=== PATIENT | female | born 1960 | race Caucasian/White ===

== ENCOUNTER 2017-08-23 06:58 | Day surgery (SDC) | payer MEDICARE, OTHER ==
[~2017-08-23] VITALS: Ht 157.5 cm; Wt 55.8 kg
[~2017-08-23 06:58] MED LIST: ASPI81EC; FOLATE PO; GABA300 PO; HYDACE5 PO; LEVFLO500 PO; METTREX2.5 PO; NAPR500 PO; OXYC30 PO
[2017-09-15] MEDS ORDERED: RANI150 PO (13:51)
== END 2017-08-23 08:56 | disposition home or self-care (01) ==
LOC: ORSCMMR 06:58
PROVIDERS: Internal Medicine Gastroenterology
PROC: 0DB58ZX Excision of Esophagus, Via Natural or Artificial Opening Endoscopic, Diagnostic (ICD-10-PCS; principal; 2017-08-23 08:00)
PROC: 0DB98ZX Excision of Duodenum, Via Natural or Artificial Opening Endoscopic, Diagnostic (ICD-10-PCS; principal; 2017-08-23 08:00)
PROC: 0DB68ZX Excision of Stomach, Via Natural or Artificial Opening Endoscopic, Diagnostic (ICD-10-PCS; principal; 2017-08-23 08:00)
PROC: 0DB48ZX Excision of Esophagogastric Junction, Via Natural or Artificial Opening Endoscopic, Diagnostic (ICD-10-PCS; principal; 2017-08-23 08:00)
DX: R10.13 Epigastric pain (principal); R10.12 Left upper quadrant pain; K44.9 Diaphragmatic hernia without obstruction or gangrene; K29.80 Duodenitis without bleeding; Z83.71 Family history of colonic polyps; F17.210 Nicotine dependence, cigarettes, uncomplicated; Z79.899 Other long term (current) drug therapy
CPT/HCPCS: 88305; 88342; J7120

== ENCOUNTER 2017-09-18 07:58 | Day surgery (SDC) | payer MEDICARE, OTHER ==
[~2017-09-18] VITALS: Ht 157.5 cm; Wt 56.2 kg
[~2017-09-18 07:58] MED LIST changes: +RANI150 PO
[2017-09-18] MEDS ORDERED: TRAZ50 PO (08:23)
== END 2017-09-18 10:00 | disposition home or self-care (01) ==
LOC: ORSCMMR 07:58
PROVIDERS: Internal Medicine Gastroenterology
PROC: 0DBH8ZX Excision of Cecum, Via Natural or Artificial Opening Endoscopic, Diagnostic (ICD-10-PCS; principal; 2017-09-18 09:00)
PROC: 0DBK8ZX Excision of Ascending Colon, Via Natural or Artificial Opening Endoscopic, Diagnostic (ICD-10-PCS; principal; 2017-09-18 09:00)
PROC: 0DBM8ZX Excision of Descending Colon, Via Natural or Artificial Opening Endoscopic, Diagnostic (ICD-10-PCS; principal; 2017-09-18 09:00)
DX: Z12.11 Encounter for screening for malignant neoplasm of colon (principal); D12.2 Benign neoplasm of ascending colon; D12.0 Benign neoplasm of cecum; D12.4 Benign neoplasm of descending colon; K64.8 Other hemorrhoids; K57.30 Diverticulosis of large intestine without perforation or abscess without bleeding; M06.9 Rheumatoid arthritis, unspecified; Z83.71 Family history of colonic polyps; F17.210 Nicotine dependence, cigarettes, uncomplicated; Z79.899 Other long term (current) drug therapy
CPT/HCPCS: 88305; J7120

== ENCOUNTER 2017-10-05 06:14 | Day surgery (SDC) | payer MEDICARE, OTHER ==
[~2017-10-05] VITALS: Ht 157.5 cm; Wt 55.6 kg
[~2017-10-05 06:14] MED LIST changes: +TRAZ50 PO
== END 2017-10-05 10:13 | disposition home or self-care (01) ==
LOC: ORSCSDS 06:14
PROVIDERS: Orthopaedic Surgery
PROC: 0RBK4ZZ Excision of Left Shoulder Joint, Percutaneous Endoscopic Approach (ICD-10-PCS; principal; 2017-10-05 07:30)
DX: M75.112 Incomplete rotator cuff tear or rupture of left shoulder, not specified as traumatic (principal); M94.212 Chondromalacia, left shoulder; Z79.899 Other long term (current) drug therapy; F17.210 Nicotine dependence, cigarettes, uncomplicated
CPT/HCPCS: J0171; J0690; J1100; J1885; J2250; J2405; J3010; J7120

== ENCOUNTER → 2017-12-15 | Outpatient (CLI) | payer MEDICARE, OTHER | END | disposition home or self-care (01) | LOC: LAB SHORT 14:27 → LAB 14:27 | DX: L92.8 Other granulomatous disorders of the skin and subcutaneous tissue (principal) | CPT/HCPCS: 88304 ==

== ENCOUNTER 2017-12-29 07:59 | Emergency (ER) | payer MEDICARE, OTHER ==
[~2017-12-29] VITALS: Ht 157.5 cm; Wt 55.3 kg
[2017-12-29] MEDS ORDERED: FOLI1 PO (08:40)
[2017-12-29] MEDS ORDERED: GABA100 PO (08:41)
== END 2017-12-29 10:00 | disposition home or self-care (01) ==
LOC: ER 07:59
DX: G89.18 Other acute postprocedural pain (principal); Z48.817 Encounter for surgical aftercare following surgery on the skin and subcutaneous tissue; Z88.5 Allergy status to narcotic agent; Z79.899 Other long term (current) drug therapy; Z79.891 Long term (current) use of opiate analgesic; F17.200 Nicotine dependence, unspecified, uncomplicated
CPT/HCPCS: 99282

== ENCOUNTER 2018-08-20 08:14 | Emergency (ER) | payer MEDICARE, OTHER ==
[~2018-08-20] VITALS: Ht 157.5 cm; Wt 49.9 kg
[~2018-08-20 08:14] MED LIST changes: +FOLI1 PO; +GABA100 PO
[2018-08-20 09:23] LABS: BASOPHILS ABSOLUTE AUTO 0.11 K/mm3 (0.00-0.23); BASOPHILS PERCENT AUTO 1 % (0-2); EOSINOPHILS PERCENT AUTO 3 % (0-6); Hemoglobin 13.6 g/dL (11.5-16.0); IMMATURE GRAN ABSOLUTE AUTO 0.02 K/mm3 (0.00-0.10); IMMATURE GRAN PERCENT AUTO 0 % (0-1); LYMPHOCYTES ABSOLUTE AUTO 2.61 K/mm3 (0.84-5.20); LYMPHOCYTES PERCENT AUTO 29 % (21-46); MONOCYTES ABSOLUTE AUTO 0.87 K/mm3 (0.16-1.47); MONOCYTES PERCENT AUTO 10 % (4-13); Mean Corpuscular HGB 30.5 pg (26.0-34.0); Mean Corpuscular HGB Conc 31.6 g/dL (31.5-36.5); Mean Corpuscular Volume 96 fL (80-100); Mean Platelet Volume 10.2 fL (9.1-12.4); NEUTROPHILS ABSOLUTE AUTO 5.12 K/mm3 (1.96-9.15); NEUTROPHILS PERCENT AUTO 57 % (41-73); Platelet Count 306 K/mm3 (150-400); RDW Coefficient Variation 13.2 % (11.7-14.2); Red Blood Cell Count 4.46 M/mm3 (3.80-5.20); White Blood Cell Count 9.03 K/mm3 (4.00-11.30)
[2018-08-20 09:51] LABS: Alanine Aminotransfer (ALT/SGP 56 U/L (12-78); Albumin, Blood 3.6 g/dL (3.4-5.0); Albumin/Globulin Ratio 0.9 (0.8-1.8); Alk Phos 98 U/L (50-136); Anion Gap 6 mmol/L (6-16); Aspartate Aminotrans (AST/SGOT 40 U/L (12-37); Bilirubin, Total 0.2 mg/dL (0.1-1.0); Blood Urea Nitrogen 8 mg/dL (8-24); Bun/Creatinine Ratio 18.3 (12.0-20.0); CO2, Blood 26 mmol/L (21-32); Calcium, Blood 8.2 mg/dL (8.5-10.1); Chloride, Blood 108 mmol/L (98-108); Creatinine, Blood 0.44 mg/dL (0.40-1.00); Globulin, Blood 3.8 g/dL (2.2-4.0); Glomerular Filtration Rate >60 (60-); Glucose, Blood 105 mg/dL (70-99); Potassium, Blood 4.2 mmol/L (3.5-5.5); Sodium, Blood 140 mmol/L (136-145); Total Protein, Blood 7.4 g/dL (6.4-8.2)
[2018-08-20] MEDS ORDERED: LIDO700A20 TOP (10:15)
[2018-08-20] MEDS ORDERED: ALBU90OI INH (10:23)
== END 2018-08-20 10:31 | disposition home or self-care (01) ==
LOC: ER 08:14
PROVIDERS: Emergency Medicine
DX: R07.9 Chest pain, unspecified (principal); R91.1 Solitary pulmonary nodule; F17.200 Nicotine dependence, unspecified, uncomplicated; Z88.5 Allergy status to narcotic agent; Z79.899 Other long term (current) drug therapy
CPT/HCPCS: 36415; 71260; 80053; 85025; 93005; 93010; 96374-59; 99284-25; J1885; Q9967

== ENCOUNTER 2019-06-25 09:47 | Emergency (ER) | payer MEDICARE, OTHER ==
[~2019-06-25] VITALS: Ht 157.5 cm; Wt 49.9 kg
[~2019-06-25 09:47] MED LIST changes: +ALBU90OI INH; +LIDO700A20 TOP
== END 2019-06-25 11:02 | disposition left against medical advice (07) ==
LOC: ER 09:47
DX: Z53.21 Procedure and treatment not carried out due to patient leaving prior to being seen by health care provider (principal)

== ENCOUNTER 2020-05-27 12:02 | Emergency (ER) | payer MEDICARE, OTHER ==
[~2020-05-27] VITALS: Ht 157.5 cm; Wt 56.7 kg
[2020-05-27 12:57] LABS: BASOPHILS ABSOLUTE AUTO 0.09 K/mm3 (0.00-0.23); BASOPHILS PERCENT AUTO 1 % (0-2); EOSINOPHILS ABSOLUTE AUTO 0.47 K/mm3 (0.00-0.68); EOSINOPHILS PERCENT AUTO 4 % (0-6); Hematocrit 41.7 % (33.0-51.0); Hemoglobin 13.2 g/dL (11.5-16.0); IMMATURE GRAN ABSOLUTE AUTO 0.03 K/mm3 (0.00-0.10); IMMATURE GRAN PERCENT AUTO 0 % (0-1); LYMPHOCYTES ABSOLUTE AUTO 2.53 K/mm3 (0.84-5.20); LYMPHOCYTES PERCENT AUTO 23 % (21-46); MONOCYTES ABSOLUTE AUTO 0.89 K/mm3 (0.16-1.47); MONOCYTES PERCENT AUTO 8 % (4-13); Mean Corpuscular HGB 29.7 pg (26.0-34.0); Mean Corpuscular HGB Conc 31.7 g/dL (31.5-36.5); Mean Corpuscular Volume 94 fL (80-100); Mean Platelet Volume 10.5 fL (9.1-12.4); NEUTROPHILS ABSOLUTE AUTO 6.78 K/mm3 (1.96-9.15); NEUTROPHILS PERCENT AUTO 63 % (41-73); Platelet Count 306 K/mm3 (150-400); RDW Standard Deviation 41.7 fL (35.1-46.3); Red Blood Cell Count 4.45 M/mm3 (3.80-5.20); White Blood Cell Count 10.79 K/mm3 (4.00-11.30)
[2020-05-27 13:39] LABS: Alanine Aminotransfer (ALT/SGP 49 U/L (12-78); Albumin, Blood 3.6 g/dL (3.4-5.0); Albumin/Globulin Ratio 0.9 (0.8-1.8); Alk Phos 103 U/L (50-136); Anion Gap 4 mmol/L (6-16); Aspartate Aminotrans (AST/SGOT 36 U/L (12-37); Bilirubin, Total 0.3 mg/dL (0.1-1.0); Blood Urea Nitrogen 10 mg/dL (8-24); Bun/Creatinine Ratio 15.8 (12.0-20.0); CO2, Blood 27 mmol/L (21-32); Calcium, Blood 8.8 mg/dL (8.5-10.1); Chloride, Blood 107 mmol/L (98-108); Creatinine, Blood 0.63 mg/dL (0.40-1.00); Globulin, Blood 3.8 g/dL (2.2-4.0); Glomerular Filtration Rate >60 (60-); Glucose, Blood 107 mg/dL (70-99); Potassium, Blood 3.9 mmol/L (3.5-5.5); Sodium, Blood 138 mmol/L (136-145); Total Protein, Blood 7.4 g/dL (6.4-8.2)
[2020-05-27 15:23] LABS: Source, Urine Clean Catch
[2020-05-27 15:28] LABS: Appearance, Urine Clear (Clear); Bilirubin, Urine Neg (Neg); Blood, Urine 2+ (Neg); Color, Urine Yellow (P-Yellow); Glucose Qualitative, Urine Neg (Neg); Ketones, Urine 1+ (Neg); Leukocyte Esterase, Urine Neg (Neg); Nitrite, Urine Neg (Neg); Protein, Urine Neg (Neg); Urobilinogen, Urine NORM (Normal)
[2020-05-27 16:12] LABS: Bacteria Rare /hpf; Squamous Epithelial Cells Few /hpf (Few); White Blood Cells, Urine 0-2 /hpf (0-5)
== END 2020-05-27 15:47 | disposition home or self-care (01) ==
LOC: ER 12:02
PROVIDERS: Physician Assistant
DX: R10.32 Left lower quadrant pain (principal); M79.662 Pain in left lower leg; M79.661 Pain in right lower leg; F17.210 Nicotine dependence, cigarettes, uncomplicated; Z88.5 Allergy status to narcotic agent; Z79.899 Other long term (current) drug therapy
CPT/HCPCS: 36415; 74176; 80053; 81001; 83690; 85025; 93971; 96361; 96374; 99284-25; J2405; J7030

== ENCOUNTER 2020-11-15 09:30 | Inpatient (IN) | payer MEDICARE, OTHER ==
[~2020-11-15] VITALS: Ht 157.5 cm; Wt 59.8 kg
[2020-11-15] MEDS ORDERED: ALPRAZOLAM0.5 M1 PO (09:57)
[2020-11-15] MEDS ORDERED: TRAZ50 PO (09:57)
[2020-11-15] MEDS ORDERED: HUMIRA(CF)40 MG/0.4 (09:57)
[2020-11-15] MEDS ORDERED: NICODERM CQ1 EA11 (09:58)
[2020-11-15 10:16] LABS: BASOPHILS ABSOLUTE AUTO 0.14 K/mm3 (0.00-0.23); BASOPHILS PERCENT AUTO 1 % (0-2); EOSINOPHILS ABSOLUTE AUTO 1.06 K/mm3 (0.00-0.68); EOSINOPHILS PERCENT AUTO 8 % (0-6); Hematocrit 40.3 % (33.0-51.0); Hemoglobin 13.3 g/dL (11.5-16.0); IMMATURE GRAN ABSOLUTE AUTO 0.11 K/mm3 (0.00-0.10); IMMATURE GRAN PERCENT AUTO 1 % (0-1); LYMPHOCYTES PERCENT AUTO 13 % (21-46); MONOCYTES ABSOLUTE AUTO 1.68 K/mm3 (0.16-1.47); MONOCYTES PERCENT AUTO 12 % (4-13); Mean Corpuscular HGB 29.8 pg (26.0-34.0); Mean Corpuscular Volume 90 fL (80-100); Mean Platelet Volume 10.1 fL (9.1-12.4); NEUTROPHILS ABSOLUTE AUTO 9.08 K/mm3 (1.96-9.15); NEUTROPHILS PERCENT AUTO 66 % (41-73); Platelet Count 325 K/mm3 (150-400); RDW Coefficient Variation 12.4 % (11.7-14.2); RDW Standard Deviation 41.4 fL (35.1-46.3); Red Blood Cell Count 4.46 M/mm3 (3.80-5.20); White Blood Cell Count 13.87 K/mm3 (4.00-11.30)
[2020-11-15 10:31] LABS: Alanine Aminotransfer (ALT/SGP 340 U/L (12-78); Albumin, Blood 3.1 g/dL (3.4-5.0); Albumin/Globulin Ratio 0.7 (0.8-1.8); Alk Phos 222 U/L (50-136); Anion Gap 7 mmol/L (6-16); Aspartate Aminotrans (AST/SGOT 316 U/L (12-37); Bilirubin, Total 0.3 mg/dL (0.1-1.0); Blood Urea Nitrogen 8 mg/dL (8-24); Bun/Creatinine Ratio 17.5 (12.0-20.0); CO2, Blood 26 mmol/L (21-32); Calcium, Blood 8.6 mg/dL (8.5-10.1); Chloride, Blood 101 mmol/L (98-108); Creatinine, Blood 0.46 mg/dL (0.40-1.00); Globulin, Blood 4.7 g/dL (2.2-4.0); Glomerular Filtration Rate >60 (60-); Glucose, Blood 110 mg/dL (70-99); Potassium, Blood 3.5 mmol/L (3.5-5.5); Sodium, Blood 134 mmol/L (136-145); Total Protein, Blood 7.8 g/dL (6.4-8.2); Troponin I <0.015 ng/mL (0.000-0.040)
[2020-11-15 12:54] LABS: Automated BF RBC Count 0.006 M/mm3 (0-0); RBC Count, Body Fluid 6000 /mm3 (0-0)
[2020-11-15 13:11] LABS: Body Fluid WBC Count 12440 /mm3 (0-999)
[2020-11-15 14:53] LABS: Total Cell Count, Body Fluid 100
[2020-11-15 14:57] LABS: Appearance, Body Fluid Cloudy (Clear); Color, Body Fluid Yellow (None-Yellow)
[2020-11-15 15:34] LABS: Source, Urine Catheter
[2020-11-15 15:42] LABS: Appearance, Urine Clear (Clear); Bilirubin, Urine Neg (Neg); Blood, Urine 4+ (Neg); Color, Urine Yellow (P-Yellow); Glucose Qualitative, Urine 1+ (Neg); Ketones, Urine 3+ (Neg); Leukocyte Esterase, Urine Neg (Neg); Nitrite, Urine Neg (Neg); Protein, Urine 2+ (Neg); Urobilinogen, Urine NORM (Normal); pH, Urine 6.5 (5.0-8.0)
[2020-11-15 16:05] LABS: Squamous Epithelial Cells Few /hpf (Few); White Blood Cells, Urine 0-2 /hpf (0-5)
[2020-11-15 16:06] LABS: Bacteria Few /hpf
--- NOTE | 2020-11-15 16:17 | NUR ---
PT TO ICU 15 FROM ED. PT ARRIVES WITH CHEST TUBE TO LEFT LATERAL CHEST WITH 750 ML SEROUS FLUID IN COLLECTION CHAMBER, TUBE SECURED TO CHEST WITH SUTURE AND DRESSING AND TAPE. CHEST TUBE HOOKED TO LOW CONTINUOUS SUCTION. SEROUS FLUID DRAINING FROM TUBE. DR. TORIBIO AT BEDSIDE TO ASSESS PT AND TUBE. PT COMPLAINS OF 9/10 PAIN, MEDICATED PER AUG. PT'S CHART LISTS "CODEINE ALLERGY/ADVERSE REACTION", PT GIVEN DILAUDID WITH NO ADVERSE REACTION. CONFIRMED ALLERGY WITH PT, PT STATES "NOT REALLY ANY ALLERGY, TOOK IT YEARS AGO AND I WAS A LITTLE ITCHY". REMOVED CODEINE ALLERGY. LUNG SOUNDS ABSENT LEFT UPPER/LOWER LOBE AND DIM UPPER/LOWER RIGHT SIDE. SATS 95% ON ROOM AIR. PT DENIES SHORTNESS OF BREATH AT THIS TIME. DRESSING TO LEFT UPPER CHEST FROM ATTEMPTED PLEURX PLACEMENT. PT DENIES NEEDS AT THIS TIME. BED LOW/LOCKED POSITION. CALL LIGHT IN HAND.
[2020-11-15 16:32] LABS: Glucose, Body Fluid <1 mg/dL
[2020-11-15 16:36] LABS: Albumin, Body Fluid 2.5 g/dL; Protein, Body Fluid 5.9 g/dL
[2020-11-15 16:40] LABS: Lactate Dehydrogenase, Body Fl > 4000 U/L
[2020-11-15 16:57] LABS: pH, Body Fluid 7.3
--- NOTE | 2020-11-15 19:21 | NUR ---
NO ACUTE CHANGES SINCE ADMISSION. 770 SEROUS OUTPUT FROM CHEST TUBE. PT VSS, DENIES NEEDS AT THIS TIME. WILL REPORT TO ONCOMING NURSE.
--- NOTE | 2020-11-15 22:46 | NUR ---
ASSUME CARE START OF SHIFT PT IN BED WITH MODERATE PAIN. DAUGHTER AT BEDSIDE. PT HAVING SIGNIFICANT PAIN WITH MOVEMENT. BREATHING SHALLOW DUE TO INCREASED PAIN. PT GIVEN AND EDUCATED ON INCENTIVE SPIROMETER. LUNG SOUNDS DIM ON L SIDE, AIR MOVEMENT AUDIBLE IN UPPE L CHEST. R CLEAR. PT ON ROOM AIR WITH SATS >90%. VITALS STABLE, BP 139/69. HR 90-100'S. CHEST TUBE TO WATER SEAL WITH 775ML IN CONTAINER BROWN/GREEN COLOR. PT INDEPENDENT, WANTS ASSISTANCE AT TIMES TO HELP EASE PAIN WHEN MOVING IN BED.
[2020-11-16 04:16] LABS: BASOPHILS ABSOLUTE AUTO 0.09 K/mm3 (0.00-0.23); BASOPHILS PERCENT AUTO 1 % (0-2); EOSINOPHILS ABSOLUTE AUTO 1.33 K/mm3 (0.00-0.68); EOSINOPHILS PERCENT AUTO 11 % (0-6); Hematocrit 38.2 % (33.0-51.0); Hemoglobin 12.5 g/dL (11.5-16.0); IMMATURE GRAN ABSOLUTE AUTO 0.06 K/mm3 (0.00-0.10); IMMATURE GRAN PERCENT AUTO 1 % (0-1); LYMPHOCYTES PERCENT AUTO 17 % (21-46); MONOCYTES ABSOLUTE AUTO 1.66 K/mm3 (0.16-1.47); MONOCYTES PERCENT AUTO 14 % (4-13); Mean Corpuscular HGB 29.7 pg (26.0-34.0); Mean Corpuscular HGB Conc 32.7 g/dL (31.5-36.5); Mean Corpuscular Volume 91 fL (80-100); Mean Platelet Volume 9.9 fL (9.1-12.4); NEUTROPHILS ABSOLUTE AUTO 6.87 K/mm3 (1.96-9.15); NEUTROPHILS PERCENT AUTO 57 % (41-73); Platelet Count 301 K/mm3 (150-400); RDW Coefficient Variation 12.6 % (11.7-14.2); RDW Standard Deviation 42.1 fL (35.1-46.3); Red Blood Cell Count 4.21 M/mm3 (3.80-5.20); White Blood Cell Count 12.01 K/mm3 (4.00-11.30)
[2020-11-16 04:37] LABS: Anion Gap 6 mmol/L (6-16); Blood Urea Nitrogen 6 mg/dL (8-24); Bun/Creatinine Ratio 11.6 (12.0-20.0); CO2, Blood 26 mmol/L (21-32); Calcium, Blood 8.4 mg/dL (8.5-10.1); Chloride, Blood 102 mmol/L (98-108); Creatinine, Blood 0.52 mg/dL (0.40-1.00); Glomerular Filtration Rate >60 (60-); Glucose, Blood 104 mg/dL (70-99); Potassium, Blood 3.5 mmol/L (3.5-5.5); Sodium, Blood 134 mmol/L (136-145)
--- NOTE | 2020-11-16 05:40 | NUR ---
SHIFT SUMMARY PT WAS ALERT, ORIENTED, AND COOPERATIVE WITH CARE. PT HAD LITTLE CHANGE T/O THE NIGHT. PAIN WAS MODERATELY CONTROLLED WITH MEDIACTIONS AND WARM TOWELS. PAIN INCREASED WITH MOVEMENT. PT ON ROOM AIR T/O THE NIGHT WITH O2 SATS >90%, LOW 90'S DUE TO SHALLOW BREATHING. PT USING INCENTIVE SPIROMETER INTERMITTENTLY T/O THE NIGHT. AIR MOVEMENT HEARD OVER L SIDE, DIM IN THE BASE. R SIDE CLEAR. CHEST TUBE DRESSING C/D/I, DRAINAGE ABOUT 25ML OUT, BROWN/GREED COLOR. HR AND BP STABLE. PT HAD A QUIET, UNEVENTFUL NIGHT AND WAS ABLE TO GET SOME SLEEP.
[2020-11-16 07:07] LABS: HBSAG SCREEN Negative (Negative); HEP A AB, IGM Negative (Negative); HEP B CORE AB, IGM Negative (Negative); HEP C VIRUS AB <0.1 (0.0-0.9)
--- NOTE | 2020-11-16 08:00 | NUR ---
PT A&OX4-REPORTS 9/10 LEFT CHEST WALL/CHEST TUBE INSERTION PAIN. MED WITH DILAUDID 0.5 MG IVP X 1-SEE EMAR. PT IS AFEBRILE-VS WDL. LUNGS DIMINISHED TO LEFT-CT TO SUCTION-SMALL AMOUNT OF BROWN/GREEN DRAINAGE TO COLLECTION CHAMBER. SMALL AIR LEAK WITH COUGHING. SATS>90% ON RA. DRESSING TO LEFT/ANTERIOR CHEST C/D/I-NO CREPITUS. LEFT LATERAL CHEST/CHEST TUBE DRESSING C/D/I-NO CREPITUS NOTED. RIGHT LUNG CLEAR TO UPPER LOBE, DIMINISHED IN THE BASES WITH SCATTERED EXPIRATORY WHEEZE. PT DENIES HAVING HX-COPD/ASTHMA-BUT REPORTS THAT SHE IS CURRENTLY AN EVERY DAY SMOKER. PT HAS NICOTINE PATCH ON. NO GI OR DISTRESS NOTED. PT ABLE TO LIFT HER HIPS AND/OR TURN FROM SIDE TO SIDE TO GET ON AND OFF OF BEDPAN. K-PAD PLACED TO LEFT CHEST WALL PER PT REQUEST.
--- NOTE | 2020-11-16 10:30 | NUR ---
DR. TORIBIO HAS CONTACTED [facility] AND [facility] TRANSFER HAS BEEN INITIATED. HOWEVER, NO ACCEPTING MD OR BED YET. FACE SHEET FAXED TO TRANSFER CENTER. COVID TEST DONE-WILL FAX RESULTS TO TRANSFER CENTER WHEN AVAILABLE. PT UPDATED TO PLAN OF CARE. SHE BECAME VERY ANXIOUS AND TEARFUL. PT REQUESTED XANAX-REQUEST GRANTED.
[2020-11-16 11:50] LABS: SARS-Cov-2 (COVID-19) PCR, MMC NEGATIVE (NEGATIVE)
--- NOTE | 2020-11-16 12:25 | NUR ---
PT TRANSFERED TO [facility]IA [facility]. REPORT GIVEN TO CLAUDIA-CERTIFIED NEURODIAGNOSTIC TECHNOLOGIST AND SUMI DUARTE @ [facility]. PT BELONGINGS AND RECORD SENT.
== END 2020-11-16 12:25 | disposition short-term general hospital (02) | DRG 166 ==
LOC: ER 09:30 → ICUW 12:37 → ERHOLD 12:37 → ICUW 14:40
PROVIDERS: Emergency Medicine; Surgery; ADMIT Internal Medicine
PROC: 0B9L30Z Drainage of Left Lung with Drainage Device, Percutaneous Approach (ICD-10-PCS; principal; 2020-11-15)
DX: J94.8 Other specified pleural conditions (principal); J96.00 Acute respiratory failure, unspecified whether with hypoxia or hypercapnia; Z20.822 Contact with and (suspected) exposure to COVID-19; J98.4 Other disorders of lung; J44.9 Chronic obstructive pulmonary disease, unspecified; F17.200 Nicotine dependence, unspecified, uncomplicated; M06.9 Rheumatoid arthritis, unspecified; J90 Pleural effusion, not elsewhere classified; G89.29 Other chronic pain; R74.01 Elevation of levels of liver transaminase levels; Z88.5 Allergy status to narcotic agent; Z79.899 Other long term (current) drug therapy; Z79.891 Long term (current) use of opiate analgesic
CPT/HCPCS: 32551; 36415; 71045; 71046; 71260; 80048; 80053; 80074; 81001; 82042; 82945; 83605; 83615; 83986; 84145; 84157; 84484; 85025; 87015; 87040; 87070; 87075; 87102; 87106; 87116; 87205; 87206; 89051; 93005; 93010; 96374-59; 96375-59; 99285-25; A9270; J0692; J0696; J1170; J2060; J2250; J2405; J2704; J3010; J3370; J7030; J7050; Q9967; U0004

== ENCOUNTER 2020-12-15 11:27 | Emergency (ER) | payer MEDICARE, OTHER ==
[~2020-12-15] VITALS: Ht 157.5 cm; Wt 56.2 kg
[~2020-12-15 11:27] MED LIST changes: +ALPRAZOLAM0.5 M1 PO; +HUMIRA(CF)40 MG/0.4; +NICODERM CQ1 EA11
[2020-12-15 12:09] LABS: BASOPHILS PERCENT AUTO 1 % (0-2); EOSINOPHILS PERCENT AUTO 2 % (0-6); Hematocrit 45.4 % (33.0-51.0); Hemoglobin 14.6 g/dL (11.5-16.0); IMMATURE GRAN ABSOLUTE AUTO 0.03 K/mm3 (0.00-0.10); IMMATURE GRAN PERCENT AUTO 0 % (0-1); LYMPHOCYTES ABSOLUTE AUTO 2.27 K/mm3 (0.84-5.20); LYMPHOCYTES PERCENT AUTO 27 % (21-46); MONOCYTES ABSOLUTE AUTO 0.74 K/mm3 (0.16-1.47); MONOCYTES PERCENT AUTO 9 % (4-13); Mean Corpuscular HGB 28.9 pg (26.0-34.0); Mean Corpuscular HGB Conc 32.2 g/dL (31.5-36.5); Mean Corpuscular Volume 90 fL (80-100); NEUTROPHILS ABSOLUTE AUTO 5.07 K/mm3 (1.96-9.15); NEUTROPHILS PERCENT AUTO 60 % (41-73); Platelet Count 331 K/mm3 (150-400); RDW Coefficient Variation 12.4 % (11.7-14.2); RDW Standard Deviation 40.7 fL (35.1-46.3); Red Blood Cell Count 5.06 M/mm3 (3.80-5.20); White Blood Cell Count 8.41 K/mm3 (4.00-11.30)
[2020-12-15 12:48] LABS: Alanine Aminotransfer (ALT/SGP 22 U/L (12-78); Albumin, Blood 3.5 g/dL (3.4-5.0); Albumin/Globulin Ratio 0.7 (0.8-1.8); Alk Phos 109 U/L (50-136); Anion Gap 8 mmol/L (6-16); Aspartate Aminotrans (AST/SGOT 16 U/L (12-37); Bilirubin, Total 0.3 mg/dL (0.1-1.0); Blood Urea Nitrogen 10 mg/dL (8-24); Bun/Creatinine Ratio 17.9 (12.0-20.0); CO2, Blood 25 mmol/L (21-32); Calcium, Blood 9.2 mg/dL (8.5-10.1); Chloride, Blood 106 mmol/L (98-108); Creatinine, Blood 0.56 mg/dL (0.40-1.00); Globulin, Blood 4.8 g/dL (2.2-4.0); Glomerular Filtration Rate >60 (60-); Glucose, Blood 108 mg/dL (70-99); Potassium, Blood 3.8 mmol/L (3.5-5.5); Sodium, Blood 139 mmol/L (136-145); Total Protein, Blood 8.3 g/dL (6.4-8.2); Troponin I <0.015 ng/mL (0.000-0.040)
== END 2020-12-15 16:23 | disposition short-term general hospital (02) ==
LOC: ER 11:27
PROVIDERS: Emergency Medicine
DX: J93.9 Pneumothorax, unspecified (principal); M06.9 Rheumatoid arthritis, unspecified; F17.210 Nicotine dependence, cigarettes, uncomplicated; Z79.899 Other long term (current) drug therapy
CPT/HCPCS: 36415; 71045; 80053; 83880; 84484; 85025; 93005; 93010; 96374; 99285-25; J2250; J2270; J2405

== ENCOUNTER 2021-01-10 14:13 | Emergency (ER) | payer MEDICARE, OTHER ==
[~2021-01-10] VITALS: Ht 157.5 cm; Wt 51.3 kg
== END 2021-01-10 16:20 | disposition home or self-care (01) ==
LOC: ER 14:13
DX: J93.9 Pneumothorax, unspecified (principal); F17.200 Nicotine dependence, unspecified, uncomplicated; Z79.899 Other long term (current) drug therapy
CPT/HCPCS: 71046; 99283-25

== ENCOUNTER → 2021-01-15 | Outpatient (CLI) | payer MEDICARE, OTHER ==
[2021-01-15 18:01] LABS: BASOPHILS ABSOLUTE AUTO 0.11 K/mm3 (0.00-0.23); BASOPHILS PERCENT AUTO 1 % (0-2); EOSINOPHILS ABSOLUTE AUTO 0.24 K/mm3 (0.00-0.68); EOSINOPHILS PERCENT AUTO 2 % (0-6); Hematocrit 36.7 % (33.0-51.0); IMMATURE GRAN ABSOLUTE AUTO 0.12 K/mm3 (0.00-0.10); IMMATURE GRAN PERCENT AUTO 1 % (0-1); LYMPHOCYTES ABSOLUTE AUTO 1.37 K/mm3 (0.84-5.20); LYMPHOCYTES PERCENT AUTO 12 % (21-46); MONOCYTES ABSOLUTE AUTO 0.74 K/mm3 (0.16-1.47); MONOCYTES PERCENT AUTO 7 % (4-13); Mean Corpuscular HGB 27.1 pg (26.0-34.0); Mean Corpuscular Volume 90 fL (80-100); Mean Platelet Volume 9.5 fL (9.1-12.4); NEUTROPHILS ABSOLUTE AUTO 8.46 K/mm3 (1.96-9.15); NEUTROPHILS PERCENT AUTO 77 % (41-73); Platelet Count 651 K/mm3 (150-400); RDW Coefficient Variation 14.4 % (11.7-14.2); Red Blood Cell Count 4.06 M/mm3 (3.80-5.20); White Blood Cell Count 11.04 K/mm3 (4.00-11.30)
[2021-01-15 20:24] LABS: Alanine Aminotransfer (ALT/SGP 27 U/L (12-78); Albumin, Blood 2.4 g/dL (3.4-5.0); Albumin/Globulin Ratio 0.4 (0.8-1.8); Alk Phos 118 U/L (50-136); Anion Gap 5 mmol/L (6-16); Aspartate Aminotrans (AST/SGOT 24 U/L (12-37); Bilirubin, Total <0.1 mg/dL (0.1-1.0); Blood Urea Nitrogen 4 mg/dL (8-24); Bun/Creatinine Ratio 10.3 (12.0-20.0); CO2, Blood 26 mmol/L (21-32); Chloride, Blood 109 mmol/L (98-108); Creatinine, Blood 0.39 mg/dL (0.40-1.00); Glomerular Filtration Rate >60 (60-); Glucose, Blood 108 mg/dL (70-99); Potassium, Blood 3.4 mmol/L (3.5-5.5); Sodium, Blood 140 mmol/L (136-145); Total Protein, Blood 8.4 g/dL (6.4-8.2)
== END | disposition home or self-care (01) ==
LOC: LAB 11:20 → LAB SHORT 11:20
PROVIDERS: Internal Medicine Infectious Disease
DX: J86.9 Pyothorax without fistula (principal); B96.89 Other specified bacterial agents as the cause of diseases classified elsewhere; B49 Unspecified mycosis
CPT/HCPCS: 80053; 85025

== ENCOUNTER → 2021-01-28 | Outpatient (CLI) | payer MEDICARE, OTHER ==
[2021-01-28 19:51] LABS: BASOPHILS PERCENT AUTO 1 % (0-2); EOSINOPHILS ABSOLUTE AUTO 0.45 K/mm3 (0.00-0.68); EOSINOPHILS PERCENT AUTO 5 % (0-6); Hematocrit 38.4 % (33.0-51.0); Hemoglobin 11.8 g/dL (11.5-16.0); IMMATURE GRAN ABSOLUTE AUTO 0.04 K/mm3 (0.00-0.10); IMMATURE GRAN PERCENT AUTO 1 % (0-1); LYMPHOCYTES ABSOLUTE AUTO 2.39 K/mm3 (0.84-5.20); LYMPHOCYTES PERCENT AUTO 27 % (21-46); MONOCYTES ABSOLUTE AUTO 0.68 K/mm3 (0.16-1.47); MONOCYTES PERCENT AUTO 8 % (4-13); Mean Corpuscular HGB 27.1 pg (26.0-34.0); Mean Corpuscular HGB Conc 30.7 g/dL (31.5-36.5); Mean Corpuscular Volume 88 fL (80-100); Mean Platelet Volume 10.4 fL (9.1-12.4); NEUTROPHILS ABSOLUTE AUTO 5.08 K/mm3 (1.96-9.15); NEUTROPHILS PERCENT AUTO 58 % (41-73); Platelet Count 470 K/mm3 (150-400); RDW Coefficient Variation 14.6 % (11.7-14.2); Red Blood Cell Count 4.35 M/mm3 (3.80-5.20); White Blood Cell Count 8.74 K/mm3 (4.00-11.30)
[2021-01-28 20:07] LABS: Alanine Aminotransfer (ALT/SGP 19 U/L (12-78); Albumin, Blood 2.9 g/dL (3.4-5.0); Albumin/Globulin Ratio 0.5 (0.8-1.8); Alk Phos 92 U/L (50-136); Anion Gap 6 mmol/L (6-16); Aspartate Aminotrans (AST/SGOT 23 U/L (12-37); Bilirubin, Total 0.2 mg/dL (0.1-1.0); Blood Urea Nitrogen 6 mg/dL (8-24); Bun/Creatinine Ratio 17.6 (12.0-20.0); CO2, Blood 28 mmol/L (21-32); Calcium, Blood 8.9 mg/dL (8.5-10.1); Chloride, Blood 103 mmol/L (98-108); Creatinine, Blood 0.34 mg/dL (0.40-1.00); Globulin, Blood 5.3 g/dL (2.2-4.0); Glomerular Filtration Rate >60 (60-); Glucose, Blood 80 mg/dL (70-99); Sodium, Blood 137 mmol/L (136-145); Total Protein, Blood 8.2 g/dL (6.4-8.2)
== END | disposition home or self-care (01) ==
LOC: LAB HH 18:56 → LAB 18:56
PROVIDERS: Internal Medicine Infectious Disease
DX: J86.9 Pyothorax without fistula (principal); B96.89 Other specified bacterial agents as the cause of diseases classified elsewhere; B49 Unspecified mycosis
CPT/HCPCS: 80053; 85025

== ENCOUNTER → 2021-02-04 | Outpatient (CLI) | payer MEDICARE, OTHER ==
[2021-02-04 19:27] LABS: BASOPHILS ABSOLUTE AUTO 0.11 K/mm3 (0.00-0.23); BASOPHILS PERCENT AUTO 1 % (0-2); EOSINOPHILS ABSOLUTE AUTO 0.41 K/mm3 (0.00-0.68); EOSINOPHILS PERCENT AUTO 4 % (0-6); Hematocrit 41.3 % (33.0-51.0); IMMATURE GRAN ABSOLUTE AUTO 0.03 K/mm3 (0.00-0.10); IMMATURE GRAN PERCENT AUTO 0 % (0-1); LYMPHOCYTES ABSOLUTE AUTO 2.65 K/mm3 (0.84-5.20); LYMPHOCYTES PERCENT AUTO 26 % (21-46); MONOCYTES ABSOLUTE AUTO 0.74 K/mm3 (0.16-1.47); MONOCYTES PERCENT AUTO 7 % (4-13); Mean Corpuscular HGB 27.9 pg (26.0-34.0); Mean Corpuscular HGB Conc 31.5 g/dL (31.5-36.5); Mean Corpuscular Volume 89 fL (80-100); Mean Platelet Volume 10.4 fL (9.1-12.4); NEUTROPHILS ABSOLUTE AUTO 6.34 K/mm3 (1.96-9.15); NEUTROPHILS PERCENT AUTO 62 % (41-73); Platelet Count 476 K/mm3 (150-400); RDW Coefficient Variation 15.3 % (11.7-14.2); RDW Standard Deviation 49.4 fL (35.1-46.3); Red Blood Cell Count 4.66 M/mm3 (3.80-5.20); White Blood Cell Count 10.28 K/mm3 (4.00-11.30)
[2021-02-04 19:40] LABS: Alanine Aminotransfer (ALT/SGP 22 U/L (12-78); Albumin, Blood 3.2 g/dL (3.4-5.0); Albumin/Globulin Ratio 0.7 (0.8-1.8); Alk Phos 98 U/L (50-136); Anion Gap 7 mmol/L (6-16); Aspartate Aminotrans (AST/SGOT 18 U/L (12-37); Bilirubin, Total 0.2 mg/dL (0.1-1.0); Blood Urea Nitrogen 17 mg/dL (8-24); Bun/Creatinine Ratio 44.9 (12.0-20.0); CO2, Blood 23 mmol/L (21-32); Calcium, Blood 8.8 mg/dL (8.5-10.1); Chloride, Blood 113 mmol/L (98-108); Creatinine, Blood 0.38 mg/dL (0.40-1.00); Globulin, Blood 4.8 g/dL (2.2-4.0); Glomerular Filtration Rate >60 (60-); Glucose, Blood 74 mg/dL (70-99); Potassium, Blood 3.7 mmol/L (3.5-5.5); Sodium, Blood 143 mmol/L (136-145)
== END | disposition home or self-care (01) ==
LOC: LAB 11:11 → LAB SHORT 11:11 → LAB HH 11:11
PROVIDERS: Internal Medicine Infectious Disease
DX: J86.9 Pyothorax without fistula (principal); B49 Unspecified mycosis; B96.89 Other specified bacterial agents as the cause of diseases classified elsewhere; Z79.2 Long term (current) use of antibiotics
CPT/HCPCS: 80053; 85025

== ENCOUNTER 2021-02-11 14:47 | Emergency (ER) | payer MEDICARE, OTHER ==
[~2021-02-11] VITALS: Ht 157.5 cm; Wt 50.4 kg
== END 2021-02-11 18:05 | disposition short-term general hospital (02) ==
LOC: ER 14:47
DX: J93.9 Pneumothorax, unspecified (principal); J98.2 Interstitial emphysema; F17.200 Nicotine dependence, unspecified, uncomplicated
CPT/HCPCS: 71045; 99285-25

== ENCOUNTER → 2021-03-04 | Outpatient (CLI) | payer MEDICARE, OTHER ==
[2021-03-04 20:04] LABS: BASOPHILS ABSOLUTE AUTO 0.08 K/mm3 (0.00-0.23); BASOPHILS PERCENT AUTO 1 % (0-2); EOSINOPHILS ABSOLUTE AUTO 0.62 K/mm3 (0.00-0.68); EOSINOPHILS PERCENT AUTO 7 % (0-6); Hematocrit 39.6 % (33.0-51.0); Hemoglobin 12.6 g/dL (11.5-16.0); IMMATURE GRAN ABSOLUTE AUTO 0.06 K/mm3 (0.00-0.10); IMMATURE GRAN PERCENT AUTO 1 % (0-1); LYMPHOCYTES ABSOLUTE AUTO 2.78 K/mm3 (0.84-5.20); LYMPHOCYTES PERCENT AUTO 30 % (21-46); MONOCYTES ABSOLUTE AUTO 0.64 K/mm3 (0.16-1.47); MONOCYTES PERCENT AUTO 7 % (4-13); Mean Corpuscular HGB 27.6 pg (26.0-34.0); Mean Corpuscular HGB Conc 31.8 g/dL (31.5-36.5); Mean Corpuscular Volume 87 fL (80-100); Mean Platelet Volume 10.9 fL (9.1-12.4); NEUTROPHILS ABSOLUTE AUTO 4.96 K/mm3 (1.96-9.15); NEUTROPHILS PERCENT AUTO 54 % (41-73); Platelet Count 517 K/mm3 (150-400); RDW Coefficient Variation 14.3 % (11.7-14.2); RDW Standard Deviation 45.1 fL (35.1-46.3); Red Blood Cell Count 4.57 M/mm3 (3.80-5.20); White Blood Cell Count 9.14 K/mm3 (4.00-11.30)
[2021-03-04 20:36] LABS: Alanine Aminotransfer (ALT/SGP 48 U/L (12-78); Albumin, Blood 3.3 g/dL (3.4-5.0); Albumin/Globulin Ratio 0.7 (0.8-1.8); Alk Phos 147 U/L (50-136); Anion Gap 9 mmol/L (6-16); Aspartate Aminotrans (AST/SGOT 35 U/L (12-37); Bilirubin, Total 0.2 mg/dL (0.1-1.0); Blood Urea Nitrogen 10 mg/dL (8-24); CO2, Blood 25 mmol/L (21-32); Calcium, Blood 8.9 mg/dL (8.5-10.1); Chloride, Blood 107 mmol/L (98-108); Creatinine, Blood 0.48 mg/dL (0.40-1.00); Globulin, Blood 4.5 g/dL (2.2-4.0); Glomerular Filtration Rate >60 (60-); Glucose, Blood 95 mg/dL (70-99); Potassium, Blood 3.8 mmol/L (3.5-5.5); Sodium, Blood 141 mmol/L (136-145); Total Protein, Blood 7.8 g/dL (6.4-8.2)
== END | disposition home or self-care (01) ==
LOC: LAB SHORT 18:44 → LAB HH 18:44 → LAB 18:44
PROVIDERS: Internal Medicine Infectious Disease
DX: J86.9 Pyothorax without fistula (principal); B49 Unspecified mycosis; B96.89 Other specified bacterial agents as the cause of diseases classified elsewhere
CPT/HCPCS: 80053; 85025

== ENCOUNTER → 2021-03-10 | Outpatient (CLI) | payer MEDICARE, OTHER ==
[2021-03-10 19:35] LABS: BASOPHILS ABSOLUTE AUTO 0.08 K/mm3 (0.00-0.23); BASOPHILS PERCENT AUTO 1 % (0-2); EOSINOPHILS ABSOLUTE AUTO 1.14 K/mm3 (0.00-0.68); EOSINOPHILS PERCENT AUTO 11 % (0-6); Hematocrit 36.8 % (33.0-51.0); Hemoglobin 11.7 g/dL (11.5-16.0); IMMATURE GRAN ABSOLUTE AUTO 0.04 K/mm3 (0.00-0.10); IMMATURE GRAN PERCENT AUTO 0 % (0-1); LYMPHOCYTES PERCENT AUTO 30 % (21-46); MONOCYTES ABSOLUTE AUTO 0.93 K/mm3 (0.16-1.47); MONOCYTES PERCENT AUTO 9 % (4-13); Mean Corpuscular HGB 27.6 pg (26.0-34.0); Mean Corpuscular HGB Conc 31.8 g/dL (31.5-36.5); Mean Corpuscular Volume 87 fL (80-100); Mean Platelet Volume 11.1 fL (9.1-12.4); NEUTROPHILS ABSOLUTE AUTO 5.17 K/mm3 (1.96-9.15); NEUTROPHILS PERCENT AUTO 49 % (41-73); Platelet Count 406 K/mm3 (150-400); RDW Coefficient Variation 14.7 % (11.7-14.2); RDW Standard Deviation 46.6 fL (35.1-46.3); Red Blood Cell Count 4.24 M/mm3 (3.80-5.20); White Blood Cell Count 10.56 K/mm3 (4.00-11.30)
[2021-03-10 23:43] LABS: Alanine Aminotransfer (ALT/SGP 46 U/L (12-78); Albumin, Blood 3.5 g/dL (3.4-5.0); Albumin/Globulin Ratio 0.8 (0.8-1.8); Alk Phos 146 U/L (50-136); Anion Gap 6 mmol/L (6-16); Aspartate Aminotrans (AST/SGOT 33 U/L (12-37); Bilirubin, Total 0.3 mg/dL (0.1-1.0); Blood Urea Nitrogen 13 mg/dL (8-24); CO2, Blood 27 mmol/L (21-32); Calcium, Blood 8.9 mg/dL (8.5-10.1); Chloride, Blood 101 mmol/L (98-108); Globulin, Blood 4.2 g/dL (2.2-4.0); Glomerular Filtration Rate >60 (60-); Glucose, Blood 72 mg/dL (70-99); Potassium, Blood 4.3 mmol/L (3.5-5.5); Sodium, Blood 134 mmol/L (136-145); Total Protein, Blood 7.7 g/dL (6.4-8.2)
== END ==
LOC: LAB SHORT 11:15 → LAB HH 11:15 → LAB 11:15
PROVIDERS: Internal Medicine Infectious Disease
DX: J86.9 Pyothorax without fistula (principal); B96.89 Other specified bacterial agents as the cause of diseases classified elsewhere; B49 Unspecified mycosis
CPT/HCPCS: 80053; 85025

== ENCOUNTER → 2021-03-16 | Outpatient (CLI) | payer MEDICARE, OTHER ==
[2021-03-17 19:47] LABS: BASOPHILS ABSOLUTE AUTO 0.08 K/mm3 (0.00-0.23); BASOPHILS PERCENT AUTO 1 % (0-2); EOSINOPHILS ABSOLUTE AUTO 0.11 K/mm3 (0.00-0.68); EOSINOPHILS PERCENT AUTO 1 % (0-6); Hematocrit 44.8 % (33.0-51.0); Hemoglobin 14.2 g/dL (11.5-16.0); IMMATURE GRAN ABSOLUTE AUTO 0.03 K/mm3 (0.00-0.10); IMMATURE GRAN PERCENT AUTO 0 % (0-1); LYMPHOCYTES ABSOLUTE AUTO 2.74 K/mm3 (0.84-5.20); LYMPHOCYTES PERCENT AUTO 27 % (21-46); MONOCYTES ABSOLUTE AUTO 0.77 K/mm3 (0.16-1.47); MONOCYTES PERCENT AUTO 8 % (4-13); Mean Corpuscular HGB 27.3 pg (26.0-34.0); Mean Corpuscular HGB Conc 31.7 g/dL (31.5-36.5); Mean Corpuscular Volume 86 fL (80-100); Mean Platelet Volume 9.9 fL (9.1-12.4); NEUTROPHILS ABSOLUTE AUTO 6.35 K/mm3 (1.96-9.15); NEUTROPHILS PERCENT AUTO 63 % (41-73); Platelet Count 528 K/mm3 (150-400); RDW Coefficient Variation 14.5 % (11.7-14.2); RDW Standard Deviation 45.5 fL (35.1-46.3); Red Blood Cell Count 5.21 M/mm3 (3.80-5.20); White Blood Cell Count 10.08 K/mm3 (4.00-11.30)
[2021-03-17 20:12] LABS: Alanine Aminotransfer (ALT/SGP 33 U/L (12-78); Albumin, Blood 3.7 g/dL (3.4-5.0); Albumin/Globulin Ratio 0.7 (0.8-1.8); Alk Phos 151 U/L (50-136); Anion Gap 8 mmol/L (6-16); Aspartate Aminotrans (AST/SGOT 22 U/L (12-37); Bilirubin, Total 0.2 mg/dL (0.1-1.0); Blood Urea Nitrogen 13 mg/dL (8-24); Bun/Creatinine Ratio 26.4 (12.0-20.0); CO2, Blood 24 mmol/L (21-32); Calcium, Blood 9.8 mg/dL (8.5-10.1); Chloride, Blood 106 mmol/L (98-108); Creatinine, Blood 0.49 mg/dL (0.40-1.00); Glomerular Filtration Rate >60 (60-); Glucose, Blood 136 mg/dL (70-99); Potassium, Blood 3.5 mmol/L (3.5-5.5); Sodium, Blood 138 mmol/L (136-145); Total Protein, Blood 8.7 g/dL (6.4-8.2)
== END | disposition home or self-care (01) ==
LOC: LAB HH 13:10
PROVIDERS: Internal Medicine Infectious Disease
DX: J86.9 Pyothorax without fistula (principal); B96.89 Other specified bacterial agents as the cause of diseases classified elsewhere; B49 Unspecified mycosis
CPT/HCPCS: 80053; 85025

== ENCOUNTER → 2021-03-24 | Outpatient (CLI) | payer MEDICARE, OTHER ==
[2021-03-24 19:34] LABS: BASOPHILS ABSOLUTE AUTO 0.07 K/mm3 (0.00-0.23); BASOPHILS PERCENT AUTO 1 % (0-2); EOSINOPHILS ABSOLUTE AUTO 0.54 K/mm3 (0.00-0.68); EOSINOPHILS PERCENT AUTO 6 % (0-6); Hematocrit 38.1 % (33.0-51.0); Hemoglobin 12.2 g/dL (11.5-16.0); IMMATURE GRAN ABSOLUTE AUTO 0.04 K/mm3 (0.00-0.10); IMMATURE GRAN PERCENT AUTO 0 % (0-1); LYMPHOCYTES ABSOLUTE AUTO 2.74 K/mm3 (0.84-5.20); LYMPHOCYTES PERCENT AUTO 29 % (21-46); MONOCYTES ABSOLUTE AUTO 0.75 K/mm3 (0.16-1.47); MONOCYTES PERCENT AUTO 8 % (4-13); Mean Corpuscular HGB 28.4 pg (26.0-34.0); Mean Corpuscular Volume 89 fL (80-100); NEUTROPHILS PERCENT AUTO 56 % (41-73); Platelet Count 337 K/mm3 (150-400); RDW Coefficient Variation 14.6 % (11.7-14.2); RDW Standard Deviation 46.3 fL (35.1-46.3); White Blood Cell Count 9.44 K/mm3 (4.00-11.30)
[2021-03-24 20:00] LABS: Alanine Aminotransfer (ALT/SGP 26 U/L (12-78); Albumin/Globulin Ratio 0.7 (0.8-1.8); Alk Phos 125 U/L (50-136); Anion Gap 6 mmol/L (6-16); Aspartate Aminotrans (AST/SGOT 19 U/L (12-37); Bilirubin, Total 0.2 mg/dL (0.1-1.0); Blood Urea Nitrogen 9 mg/dL (8-24); Bun/Creatinine Ratio 21.4 (12.0-20.0); CO2, Blood 26 mmol/L (21-32); Calcium, Blood 8.6 mg/dL (8.5-10.1); Chloride, Blood 108 mmol/L (98-108); Creatinine, Blood 0.42 mg/dL (0.40-1.00); Globulin, Blood 4.4 g/dL (2.2-4.0); Glomerular Filtration Rate >60 (60-); Glucose, Blood 92 mg/dL (70-99); Sodium, Blood 140 mmol/L (136-145); Total Protein, Blood 7.4 g/dL (6.4-8.2)
== END | disposition home or self-care (01) ==
LOC: LAB SHORT 17:25 → LAB HH 17:25
PROVIDERS: Internal Medicine Infectious Disease
DX: J86.9 Pyothorax without fistula (principal); B96.89 Other specified bacterial agents as the cause of diseases classified elsewhere; I34.9 Nonrheumatic mitral valve disorder, unspecified
CPT/HCPCS: 80053; 85025

== ENCOUNTER → 2021-10-20 | Outpatient (CLI) | payer MEDICARE, OTHER ==
[2021-10-20 15:44] LABS: BASOPHILS ABSOLUTE AUTO 0.09 K/mm3 (0.00-0.23); BASOPHILS PERCENT AUTO 1 % (0-2); EOSINOPHILS ABSOLUTE AUTO 0.29 K/mm3 (0.00-0.68); EOSINOPHILS PERCENT AUTO 3 % (0-6); Hematocrit 42.6 % (33.0-51.0); Hemoglobin 13.5 g/dL (11.5-16.0); IMMATURE GRAN PERCENT AUTO 1 % (0-1); LYMPHOCYTES ABSOLUTE AUTO 2.56 K/mm3 (0.84-5.20); LYMPHOCYTES PERCENT AUTO 26 % (21-46); MONOCYTES ABSOLUTE AUTO 0.82 K/mm3 (0.16-1.47); MONOCYTES PERCENT AUTO 8 % (4-13); Mean Corpuscular HGB Conc 31.7 g/dL (31.5-36.5); Mean Corpuscular Volume 95 fL (80-100); Mean Platelet Volume 9.9 fL (9.1-12.4); NEUTROPHILS ABSOLUTE AUTO 6.17 K/mm3 (1.96-9.15); NEUTROPHILS PERCENT AUTO 62 % (41-73); Platelet Count 315 K/mm3 (150-400); RDW Coefficient Variation 14.1 % (11.7-14.2); RDW Standard Deviation 49.1 fL (35.1-46.3); White Blood Cell Count 10.03 K/mm3 (4.00-11.30)
[2021-10-22 05:11] LABS: HBSAG SCREEN Negative (Negative); HCV AB <0.1 (0.0-0.9); HEP B CORE AB, TOT Negative (Negative)
[2021-10-22 16:11] LABS: QUANTIFERON MITOGEN VALUE >10.00 IU/mL (.); QUANTIFERON NIL VALUE 0.06 IU/mL (.); QUANTIFERON TB1 AG VALUE 0.05 IU/mL (.); QUANTIFERON TB2 AG VALUE 0.06 IU/mL (.); QUANTIFERON-TB GOLD PLUS Negative (Negative)
== END | disposition home or self-care (01) ==
LOC: LAB SHORT 12:00
PROVIDERS: Internal Medicine Rheumatology
DX: M05.9 Rheumatoid arthritis with rheumatoid factor, unspecified (principal)
CPT/HCPCS: 84450; 85025; 85651; 86704; 86708; 86803; 87340

== ENCOUNTER 2023-02-28 10:26 | Emergency (ER) | payer MEDICARE, OTHER ==
[~2023-02-28] VITALS: Ht 157.5 cm; Wt 59.0 kg
[2023-02-28 11:16] LABS: BASOPHILS ABSOLUTE AUTO 0.09 K/mm3 (0.00-0.23); BASOPHILS PERCENT AUTO 1 % (0-2); EOSINOPHILS ABSOLUTE AUTO 0.06 K/mm3 (0.00-0.68); EOSINOPHILS PERCENT AUTO 1 % (0-6); Hematocrit 42.2 % (33.0-51.0); Hemoglobin 14.1 g/dL (11.5-16.0); IMMATURE GRAN ABSOLUTE AUTO 0.05 K/mm3 (0.00-0.10); IMMATURE GRAN PERCENT AUTO 0 % (0-1); LYMPHOCYTES PERCENT AUTO 22 % (21-46); MONOCYTES PERCENT AUTO 8 % (4-13); Mean Corpuscular HGB 31.3 pg (26.0-34.0); Mean Corpuscular HGB Conc 33.4 g/dL (31.5-36.5); Mean Corpuscular Volume 94 fL (80-100); Mean Platelet Volume 10.3 fL (9.1-12.4); NEUTROPHILS ABSOLUTE AUTO 7.84 K/mm3 (1.96-9.15); NEUTROPHILS PERCENT AUTO 69 % (41-73); Platelet Count 334 K/mm3 (150-400); RDW Coefficient Variation 12.8 % (11.7-14.2); RDW Standard Deviation 43.9 fL (35.1-46.3); White Blood Cell Count 11.44 K/mm3 (4.00-11.30)
[2023-02-28 12:12] LABS: Albumin, Blood 4.3 g/dL (3.4-5.0); Albumin/Globulin Ratio 1.1 (0.8-1.8); Bilirubin, Total 0.3 mg/dL (0.1-1.0); Bun/Creatinine Ratio 14.3 (12.0-20.0); Calcium, Blood 9.1 mg/dL (8.5-10.1); Creatinine, Blood 0.63 mg/dL (0.40-1.00); Globulin, Blood 3.9 g/dL (2.2-4.0); Potassium, Blood 3.7 mmol/L (3.5-5.5); Total Protein, Blood 8.2 g/dL (6.4-8.2)
[2023-02-28 14:00] VITALS: BP 163/110
== END 2023-02-28 14:37 | disposition home or self-care (01) ==
LOC: ER 10:26
PROVIDERS: Student in an Organized Health Care Education/Training Program
DX: R07.9 Chest pain, unspecified (principal); F17.200 Nicotine dependence, unspecified, uncomplicated; Z87.09 Personal history of other diseases of the respiratory system; Z88.5 Allergy status to narcotic agent; Z91.048 Other nonmedicinal substance allergy status; Z79.899 Other long term (current) drug therapy
CPT/HCPCS: 71046; 80053; 83880; 84145; 84484; 85025; 85379; 93005; 93010; 96374; 96375; 99285-25; A9270; J1885

== ENCOUNTER → 2024-09-26 | Outpatient (CLI) | payer MEDICARE, OTHER ==
[2024-09-26 12:47] LABS: BASOPHILS ABSOLUTE AUTO 0.09 K/mm3 (0.00-0.23); BASOPHILS PERCENT AUTO 1 % (0-2); EOSINOPHILS ABSOLUTE AUTO 0.09 K/mm3 (0.00-0.68); EOSINOPHILS PERCENT AUTO 1 % (0-6); Hematocrit 45.9 % (33.0-51.0); Hemoglobin 15.1 g/dL (11.5-16.0); IMMATURE GRAN ABSOLUTE AUTO 0.05 K/mm3 (0.00-0.10); IMMATURE GRAN PERCENT AUTO 1 % (0-1); LYMPHOCYTES ABSOLUTE AUTO 2.23 K/mm3 (0.84-5.20); LYMPHOCYTES PERCENT AUTO 31 % (21-46); MONOCYTES ABSOLUTE AUTO 0.74 K/mm3 (0.16-1.47); MONOCYTES PERCENT AUTO 10 % (4-13); Mean Corpuscular HGB 30.4 pg (26.0-34.0); Mean Corpuscular HGB Conc 32.9 g/dL (31.5-36.5); Mean Corpuscular Volume 93 fL (80-100); Mean Platelet Volume 10.3 fL (9.1-12.4); NEUTROPHILS ABSOLUTE AUTO 4.06 K/mm3 (1.96-9.15); NEUTROPHILS PERCENT AUTO 56 % (41-73); Platelet Count 303 K/mm3 (150-400); RDW Coefficient Variation 13.2 % (11.7-14.2); RDW Standard Deviation 44.4 fL (35.1-46.3); Red Blood Cell Count 4.96 M/mm3 (3.80-5.20); White Blood Cell Count 7.26 K/mm3 (4.00-11.30)
[2024-09-26 13:07] LABS: Albumin/Globulin Ratio 1.1 (0.8-1.8); Bilirubin, Total 0.4 mg/dL (0.1-1.0); Calcium, Blood 9.4 mg/dL (8.5-10.1); Creatinine, Blood 0.5 mg/dL (0.40-1.00); Globulin, Blood 3.5 g/dL (2.2-4.0); Potassium, Blood 4.1 mmol/L (3.5-5.5); Total Protein, Blood 7.5 g/dL (6.4-8.2)
== END | disposition home or self-care (01) ==
LOC: LAB 11:25 → LAB SHORT 11:25
PROVIDERS: Internal Medicine Rheumatology
DX: M05.9 Rheumatoid arthritis with rheumatoid factor, unspecified (principal)
CPT/HCPCS: 80053; 85025; 85651